=== PATIENT | male | born 1975 | race Two or more races ===

== ENCOUNTER 2023-10-23 17:36 | Emergency (ER) | payer OTHER ==
[~2023-10-23] VITALS: Ht 167.6 cm; Wt 81.8 kg
[2023-10-23 17:46] VITALS: TEMP 98
[2023-10-23] MEDS ORDERED: ATOR20TA65 PO (17:50)
[2023-10-23] MEDS ORDERED: LINA5TAB PO (17:50)
[2023-10-23] MEDS ORDERED: METF-446 PO (17:50)
[2023-10-23] MEDS ORDERED: GABA-534 PO (17:50)
[2023-10-23] MEDS ORDERED: PIOG15TA66 PO (17:50)
[2023-10-23 17:53] LABS: COVID AG,FIA SOURCE NASAL SWAB
[2023-10-23 18:22] LABS: SARS-COV2 (COVID) ANTIGEN,FIA Negative (Negative)
[2023-10-23 18:23] LABS: INFLUENZA TYPE A NEGATIVE FOR TYPE A (NEGATIVE); INFLUENZA TYPE B NEGATIVE FOR TYPE B (NEGATIVE)
[2023-10-23] MEDS ORDERED: ONDANSETRON HCL 4 MG/2 ML VIAL IVP ONE (19:45)
[2023-10-23] MEDS ORDERED: SODIUM CHLORIDE 0.9% 1,000 ML IV ONE (19:45)
[2023-10-23 19:59] LABS: BASOPHILS % (AUTO) 0.4 % (0.0-2.0); EOSINOPHILS % (AUTO) 0.1 % (1.0-6.0); HEMATOCRIT 42.5 % (41-53); HEMOGLOBIN 14.3 g/dL (13.5-17.5); LYMPHOCYTES # (AUTO) 1.4 K/uL (1.0-4.8); LYMPHOCYTES % (AUTO) 10.3 % (22.0-44.0); MEAN CORPUSCULAR HEMOGLOBIN 30.5 pg (26.0-34.0); MEAN CORPUSCULAR HGB CONC 33.7 G/dL (31.0-37.0); MEAN CORPUSCULAR VOLUME 91 fL (80-100); MONOCYTES # (AUTO) 0.5 K/uL (0.1-1.0); MONOCYTES % (AUTO) 3.6 % (2.0-9.0); NEUTROPHILS # (AUTO) 11.9 K/uL (1.8-7.7); PLATELET COUNT (AUTO) 283 K/uL (150-450); RED CELL DISTRIBUTION WIDTH 12.9 % (11.5-14.5)
[2023-10-23 20:01] LABS: NEUTROPHILS % (AUTO) 85.6 % (40.0-70.0)
[2023-10-23 20:21] LABS: CALCIUM, TOTAL 9.5 mg/dL (8.8-10.5); CREATININE 1.5 mg/dL (0.60-1.30); POTASSIUM 4.8 mmol/L (3.5-5.1)
[2023-10-23 20:27] LABS: ALBUMIN 4.4 g/dL (3.4-5.0); BILIRUBIN,TOTAL 0.3 mg/dL (0.1-1.0); TOTAL PROTEIN, SERUM 8.9 g/dL (6.4-8.2)
[2023-10-23 21:00] VITALS: BP 145/71; PULSE 81; RESP 17
[2023-10-23] MEDS ORDERED: ONDA-104 PO (21:31)
== END 2023-10-23 22:20 | disposition home or self-care (01) ==
LOC: EMS 17:41
DX: E11.65 Type 2 diabetes mellitus with hyperglycemia (principal); R11.2 Nausea with vomiting, unspecified; R42 Dizziness and giddiness; E78.00 Pure hypercholesterolemia, unspecified; Z88.6 Allergy status to analgesic agent; Z20.822 Contact with and (suspected) exposure to COVID-19
CPT/HCPCS: 99284; 96374; 96361; 87426; 80053; 82962; 83690; 85025; 87804; 36415; 93005; J2405; J7030